=== PATIENT | female | born 1960 | race Caucasian/White ===

== ENCOUNTER → 2016-11-09 | Outpatient (CLI) | payer BC ==
[2015-11-21 11:40] VITALS: BP 118/69
[~2016-11-09] MED LIST: ACET325T16 PO; LISI10TA2 PO; Lyrica PO; PREG50CA PO
--- NOTE | 2016-11-09 15:56 | RAD ---
DATE: 11/09/2016 EXAM: DIGITAL SCREEN BILAT W/CAD HISTORY: Screening COMPARISON: 07/29/2014 This study was interpreted with the benefit of Computerized Aided Detection (CAD). FINDINGS: Breast Density: HETERO The breast parenchyma Is heterogeneiously dense, which could reduce sensitivity of mammography. Breast parenchyma level C. The right breast is unchanged. There is a possible developing nodule in the left breast laterally on the cc view. A cone compression image and rolled cc views are advised. Depending on the findings at diagnostic mammography targeted ultrasound may be warranted. IMPRESSION: Possible developing nodule left breast. Additional imaging suggested as outlined above BI-RADS CATEGORY: 0 INCOMPLETE: NEED ADDITIONAL IMAGING EVAULATION AND/OR PRIOR MAMMOGRAMS FOR COMPARISON RECOMMENDED FOLLOW-UP: ADD ADDITIONAL IMAGING PQRS compliance statement: Patient information was entered into a reminder system with a target due date soon for the next mammogram. Mammography is a sensitive method for finding small breast cancers, but it does not detect them all and is not a substitute for careful clinical examination. A negative mammogram does not negate a clinically suspicious finding and should not result in delay in biopsying a clinically suspicious abnormality. "Our facility is accredited by the [employer] Mammography [employer]."
== END | disposition home or self-care (01) ==
LOC: MAMMO 12:43
PROVIDERS: ATTEND Physician Assistant Medical
DX: Z12.31 Encounter for screening mammogram for malignant neoplasm of breast (principal)
CPT/HCPCS: G0202; 77067

== ENCOUNTER → 2016-11-16 | Outpatient (CLI) | payer BC ==
[2015-11-21 11:40] VITALS: BP 118/69
--- NOTE | 2016-11-16 13:30 | RAD ---
DATE: 11/16/2016 EXAM: DIGITAL DIAGNOSTIC LT HISTORY: Suspicious screening study COMPARISON: 11/09/2016, 07/29/2014 This study was interpreted with the benefit of Computerized Aided Detection (CAD). The breast parenchyma is heterogeneously dense, which could reduce the sensitivity of mammography. Breast parenchyma level C. FINDINGS: Spot compression CC and rolled cc views of the left breast were obtained and compared to the screening images. The small opacity seen laterally in the left breast on the screening study is no longer visible on the spot compression views. The fibroglandular densities in this region of the breast on today's spot compression view appear identical to the 07/29/2014 study. The rolled views do not suggest a discrete nodule. The appearance on the one view of the screening study appears to have been a summation shadow. IMPRESSION: There is no mammographic evidence of malignancy in the left breast BI-RADS CATEGORY: 1 NEGATIVE RECOMMENDED FOLLOW-UP: 12M 12 MONTH FOLLOW-UP PQRS compliance statement: Patient information was entered into a reminder system with a target due date for the next mammogram. Mammography is a sensitive method for finding small breast cancers, but it does not detect them all and is not a substitute for careful clinical examination. A negative mammogram does not negate a clinically suspicious finding and should not result in delay in biopsying a clinically suspicious abnormality. "Our facility is accredited by the [employer] Mammography [employer]."
== END | disposition home or self-care (01) ==
LOC: MAMMO 12:42
PROVIDERS: ATTEND Physician Assistant Medical
DX: R92.8 Other abnormal and inconclusive findings on diagnostic imaging of breast (principal)
CPT/HCPCS: G0206; 77065

== ENCOUNTER → 2017-03-26 | Outpatient (CLI) | payer BC ==
[2015-11-21 11:40] VITALS: BP 118/69
--- NOTE | 2017-03-26 10:06 | RAD ---
EXAM: Pelvic ultrasound HISTORY: Left lower quadrant and pelvic pain. COMPARISON: None. FINDINGS: Sonographic evaluation of the pelvis was performed transabdominally and transvaginally. The uterus is surgically absent. There is no pelvic mass or significant free fluid. The right ovary measures 2.1 x 1.6 x 1.4 cm. The left ovary measures 1.7 x 1.5 x 1.4 cm. There is normal Doppler flow bilaterally. There are no suspicious lesions. IMPRESSION: 1. Status post hysterectomy. No cause for pain is identified.
--- NOTE | 2017-03-26 10:07 | RAD ---
Thyroid ultrasound, 03/26/2017 Indication: Enlarged thyroid Comparison study: None Discussion: Thyroid ultrasound was performed. Static images were submitted to PACS. Right thyroid measures 4.9 x 1.8 x 1.5 cm. Left thyroid measures 5.9 x 1.3 x 1.7 cm. Within the thyroid isthmus there are 2 hypoechoic nodules. On the right largest nodule measures 9 mm x 11 mm x 5 mm. On the left side of the isthmus the nodule measures 8 mm x 6 mm x 5 mm. The thyroid is diffusely heterogeneous with multiple small hypoechoic areas. Borderline hyperemia of the thyroid is noted. Impression: 1 .Borderline enlargement of the thyroid gland with diffuse heterogeneity and borderline increase in blood flow. Findings may reflect thyroiditis which could be subacute 2. 2 hypoechoic nodules within the thyroid isthmus measuring up to 11 mm and 8 mm respectively 3. Recommend follow-up ultrasound in 3-6 months
== END | disposition home or self-care (01) ==
LOC: US 08:10
PROVIDERS: ATTEND Physician Assistant Medical
DX: E04.2 Nontoxic multinodular goiter (principal); R10.32 Left lower quadrant pain; Z90.710 Acquired absence of both cervix and uterus
CPT/HCPCS: 76536; 76830; 76856

== ENCOUNTER → 2019-11-18 | Outpatient (CLI) | payer BC ==
[2015-11-21 11:40] VITALS: BP 118/69
[~2019-11-18] MED LIST changes: +ACET-2066 PO; -ACET325T16 PO
--- NOTE | 2019-11-18 17:26 | RAD ---
EXAM: PA and lateral views of the right wrist DATE: 11/18/2019 12:00 AM INDICATION: Reason: RIGHT WRIST PAIN / Spl. Instructions: / History: COMPARISON: No Prior FINDINGS/ IMPRESSION: 1. No evidence of acute fracture or dislocation. 2. Joint spaces are preserved without significant degenerative/proliferative change. 3. No scapholunate widening. Electronically signed by: Antione Aldrich MD (11/18/2019 5:23 PM) [id number]
== END | disposition home or self-care (01) ==
LOC: PMG 14:03
PROVIDERS: ATTEND Physician Assistant
DX: M25.531 Pain in right wrist (principal)
CPT/HCPCS: 73100

== ENCOUNTER → 2020-02-02 | Outpatient (CLI) | payer BC ==
[2015-11-21 11:40] VITALS: BP 118/69
--- NOTE | 2020-02-02 19:56 | RAD ---
INDICATION: Reason: Short of air, chest pain / Spl. Instructions: / History: COMPARISON: November 2015 FINDINGS: 2 view of chest obtained. Degenerative changes the spine. The cardiac silhouette is near the upper limits of normal in size but similar to prior. Mild interstitial prominence is similar to prior without a definite new region of focal airspace consolidation. IMPRESSION: * Similar appearance of the chest compared to prior exam without a definite new region of consolidation. Electronically signed by: Sesar Pope MD (02/02/2020 7:54 PM) [id number]
== END | disposition home or self-care (01) ==
LOC: DXRAD 18:58
PROVIDERS: ATTEND Physician Assistant Medical
DX: R07.9 Chest pain, unspecified (principal); M47.819 Spondylosis without myelopathy or radiculopathy, site unspecified
CPT/HCPCS: 71046

== ENCOUNTER → 2021-07-12 | Outpatient (CLI) | payer OTHER ==
[2015-11-21 11:40] VITALS: BP 118/69
[~2021-07-12] MED LIST changes: +LISI10TA16 PO; -LISI10TA2 PO
--- NOTE | 2021-07-12 10:06 | RAD ---
3 views right third finger 07/12/2021 8:13 AM Indication: Splinter. Comparison: None Findings: There is no acute fracture or dislocation. Articular surfaces are uninterupted and smooth. No radiopaque foreign body is identified. Soft tissues are unremarkable. Impression: No radiopaque foreign body or other radiographic evidence of acute osseous abnormality. Electronically signed by: Dominick Méndez MD (07/12/2021 10:04 AM) [id number]
== END ==
LOC: RAD 07:57
PROVIDERS: ATTEND Physician Assistant Medical
DX: T14.8XXA Other injury of unspecified body region, initial encounter (principal); X58.XXXA Exposure to other specified factors, initial encounter; Y93.89 Activity, other specified; Y92.89 Other specified places as the place of occurrence of the external cause; Y99.8 Other external cause status
CPT/HCPCS: 73140